=== PATIENT | female | born 1935 | race Caucasian/White ===

== ENCOUNTER 2021-05-29 14:31 | Outpatient (CLI) | payer MEDICARE, BC | END 2021-05-29 23:59 | disposition home or self-care (01) | LOC: CARD DIAG 14:31 | PROVIDERS: ATTEND Internal Medicine | DX: C50.912 Malignant neoplasm of unspecified site of left female breast (principal); C50.911 Malignant neoplasm of unspecified site of right female breast; I08.0 Rheumatic disorders of both mitral and aortic valves | CPT/HCPCS: 93306 ==

== ENCOUNTER 2025-06-15 12:49 | Emergency (ER) | payer MEDICARE, BC ==
[~2025-06-15] VITALS: Ht 165.1 cm; Wt 55.0 kg
--- NOTE | 2025-06-15 13:20 | Physician Documentation ---
History of Present Illness ~ Chief Complaint: Back Pain Stated Complaint: BACK PAIN Time Seen by MD: 13:12 HPI This is a 89-year-old female with a history of dementia, on anticoagulation, presents for evaluation of back pain. She had fallen a week ago. Since then she complains of left-sided back pain. Pain with ambulation. Had x-rays done as per stage which were negative. The pain continues so she came for a 2nd opinion. She denies striking her head. Denies headache. Denies any other symptoms. Denies my concerns for tobacco, alcohol or illicit substances use. Medication Reconciliation Allergies: Coded Allergies: latex (Verified Allergy, Unknown, 06/15/25) Review of Systems ROS 10 point review of systems was performed and unless noted above in HPI is negative for acute process/complaint. Physical Exam Physical Exam Vital Signs: Temperature: 98.3, Source: Oral, Heart Rate: 66, Respiratory Rate: 17, BP: 133/68, Pulse Oximetry: 97, Weight: 55.000 Physical Exam GENERAL: Awake, alert, oriented, GCS 15, no apparent distress, non-toxic appearing, answers questions, follows commands appropriately. HEENT: Atraumatic, normocephalic, pupils equal, extraocular muscles intact, sclerae anicteric, mucus membranes moist, oropharynx is clear, no stridor. NECK: supple, full active range of motion, trachea midline, no thyromegaly, no lymphadenopathy, no JVD. CARDIOVASCULAR: regular rate/rhythm, no murmurs/gallops/rubs, Pulses are 2+ in all extremities and symmetric. Capillary refill less than 2 seconds. PULMONARY: Nonlabored, good air movement ,no respiratory distress, speaking in full sentences, clear to auscultation bilaterally, no wheezing, no ronchi, no rales, no accessory muscle use. GASTROINTESTINAL: Soft, non-tender, non-distended, normal active bowel sounds, n o organomegaly, no pulsatile masses, no CVA tenderness. NEUROLOGIC: Lucid with normal mental status. Normal facial symmetry. Moves all extremities symmetrically and with purpose. No truncal ataxia. Speech is fluid without evidence of dysarthria or aphasia, no focal deficits appreciated. MUSCULOSKELETAL: There is full range of motion of all extremities. There is no joint pain or joint swelling or joint erythema. There is no muscle pain or tenderness or swelling. EXTREMITIES: warm, well-perfused, no cyanosis, no clubbing, no edema, no acute deformities. Skin: warm, dry, no rashes or lesions, no jaundice, no petechiae orpurpura. No ecchymosis. PSYCHIATRIC: Normal affect, normal insight, normal concentration. Focused exam: [] Progress Results/Orders Results/Orders Orders - JOEL MCCOLLUM DO Ct Lumbar Spine (06/15/25 14:17) Ct Pelvis (06/15/25 14:20) Ct Head (06/15/25 14:14) Ct Cervical Spine (06/15/25 14:16) Completed Orders - JOEL MCCOLLUM DO Ct Lumbar Spine (06/15/25 14:17) Ct Pelvis (06/15/25 14:20) Ct Head (06/15/25 14:14) Ct Cervical Spine (06/15/25 14:16) Vital Signs 06/15/25 06/15/25 12:54 14:13 Temp 98.3 Pulse 66 Resp 17 14 B/P (MAP) 133/68 Pulse Ox 97 Medical Decision Making Findings A Facility Status: ED Holds, RME process The plan was discussed with the patient, who demonstrates clear understanding of the plan and is in agreement with the plan unless otherwise noted in the chart. All questions have been answered, all concerns were addressed unless otherwise documented. I was available throughout their ED stay for frequent reassessment and questions. Differential Diagnoses (considered and possible or likely): [Ground level fall, acute traumatic pain, lumbar spine fracture or subluxation, pelvic fracture, less likely closed head injury, concussion, subdural, subarachnoid] ??Differential Diagnoses (considered and unlikely, not requiring evaluation currently): [No evidence of lateralizing signs to suspect a stroke. Clinically not consistent with a cauda equina or conus medullaris] MDM Data Please see HPI for the following: Independent Historians and external Records Review. Historian: [Patient] Independent Historians: ?[Record review] Medication Management: [Reviewed medication list] Social History and determinants: [Reviewed] Please see the body of the note for the following: Any independent interpretations of ECG, imaging studies. All vitals signs/haemodynamics, ordered tests were independently reviewed and interpreted by myself. Nursing triage complaint and vitals reviewed, additional nursing notes were reviewed as available and I agree unless otherwise noted or documented in contradiction in the chart Vital Signs: Independently reviewed Labs: Independently interpreted Imaging: Independently interpreted Old Medical Records: Independently reviewed, see HPI for relevant summary and information Pulse Oximetry: [97%] interpreted as [normal on room air] by me Additionally notably showing: [Convexity only went day cyst hemodynamically stable. No evidence of tachycardic, hypotension, respiratory distress. CT head was obtained showing no acute intracranial abnormality. 50 cervical spine was obtained showing no fracture, severe DJD. CT lumbar spine was obtained showing advanced DJD. CT of the pelvis with a obtained showed no acute fracture.] Tests considered but not ordered include: [Hematologic workup has been considered but does not appear to be necessary given mechanical nature of the injury.] Social Determinants of Health Impact: Patient was evaluated in [facility] [place] to healthcare due to below par ratio of patient to medical providers. [] Comorbid Conditions Impacting Present Evaluation and Care/Treatment: [Dementia] Management Discussions with other Healthcare Providers: [None] Treatment and Disposition Medication Management (Given or considered): []. See EMR for details Consideration for Hospitalization/Escalation/Deescalation of Care: Admission for observation has been considered, [however the patient is able to tolerate p.o., their symptoms are controlled, they are able to rely on oral medications, and their chief complaint/diagnosis can be managed on outpatient basis.] ?ED Course:?[No clinical deterioration] ?Shared decision making:?[Patient is hemodynamically stable for discharge home with follow with their primary care provider. [ ] Specific and cautious return precautions provided and discussed with full understanding. Any incidental findings were also discussed and follow up recommendations given. [] All questions answered. Patient/family were able to verbalize back return precautions. Patient/family agree to plan. Copies of imaging and laboratory studies were provided.] Code status:?FULL Please see the full Electronic Medical Record for full details of nursing documentation, medications list, other records of complete past medical history and conditions, vital signs, laboratory studies, and any radiologic study interpretations by radiologists. Portions of this note were completed using [employer] dictation software and as a result there may exist minor errors in spelling. I have reviewed elements of past family and social history and agree as included in note. Departure Disposition: HOME / SELF CARE / HOMELESS Impression: Primary Impression: Ground-level fall Additional Impression: Acute back pain Condition: Stable Discharge Instructions: Acute Back Pain, Adult Referrals: NO PRIMARY CARE PROVIDER (PCP) Education Educated: Patient Educated regarding: diagnosis, treatment, prognosis, need for follow up Signature Scribe Signature: No scribe Attestation: This note accurately reflects clinical decisions, work performed by myself, Joel Mccollum, JOEL GLASER DO Jun 15, 2025 13:20
--- NOTE | 2025-06-15 14:30 | RADIOLOGY REPORT ---
COMPUTERIZED TOMOGRAPHY OF THE HEAD WITHOUT CONTRAST REASON FOR STUDY: Fall, pain COMPARISON: None TECHNIQUE: Helical tomographic scans were obtained through the brain. 2-D coronal and sagittal reformatted images are provided. Radiation optimization: All CT scans at this facility use at least one of these dose optimization techniques: Automated exposure control mA and/or kV adjustment per patient size (includes targeted exams where dose is matched to clinical indication) or iterative reconstruction. RADIATION DOSE: CTDI: 62 mGy DLP: 1104 mGy-cm FINDINGS: No suspicious intracranial hyperdensity to suggest acute blood. There is no mass effect nor midline shift. There is moderate generalized volume loss with compensatory enlargement of the CSF spaces. There is no hydrocephalus. The suprasellar cistern is intact. There are scattered periventricular and deep white matter hypodensities that are most consistent with chronic microangiopathic changes. The calvarium is intact. There is moderate scattered mucosal thickening in the visualized paranasal sinuses. The visualized mastoid air cells are grossly clear. IMPRESSION: No acute intracranial abnormality. Moderate generalized volume loss with chronic small vessel ischemic change. Moderate mucosal disease in the visualized paranasal sinuses. Correlate clinically for acute sinusitis.
--- NOTE | 2025-06-15 14:31 | RADIOLOGY REPORT ---
Indication: Fall, pain Technique: CT axial images of the cervical spine are obtained without contrast. Coronal and sagittal reformats were obtained. Radiation Dose Information: CTDI volume is 22 mGy. Dose-length product is 528.5 mGy*cm Comparison: None FINDINGS: The cervical vertebral body heights are maintained. Straightening of normal cervical spine curvature. 2 mm anterolisthesis C2 upon C3. There is severe multilevel disc space narrowing. No prevertebral edema. Facet articulations demonstrate moderate facet hypertrophic changes . The atlantooccipital, marielena antoaxial articulations are intact. IMPRESSION: Severe cervical degenerative disc disease.
--- NOTE | 2025-06-15 14:43 | RADIOLOGY REPORT ---
CT CT LUMBAR SPINE Indication: Fall, pain EXAM DATE: 06/15/2025 02:12 PM COMPARISON: None TECHNIQUE: CT of the lumbar spine without intravenous contrast. RADIATION DOSE: CTDIvol: 30 mGy, DLP: 970 mGy*cm FINDINGS: The lumbar vertebral body heights are maintained. Moderate to advanced multilevel disc space narrowing in the lumbar spine. Vacuum disc phenomena at L1-2. Mild lumbar dextrocurvature.. Moderate to advanced lumbar facet hypertrophic changes. 3 mm disc protrusion at L1-2. Znve-vi-ooumkbwo spinal canal stenosis at this level. 4 mm disc protrusion at L2-3. Naaj-ua-aakcpbyo spinal canal stenosis at this level. 4 mm disc protrusion L3-4. Moderate spinal canal stenosis at this level. 5 mm disc protrusion at L4-5. Moderate to severe spinal canal stenosis at this level. 4 mm disc protrusion at L5-S1. Moderate spinal canal stenosis at level. Moderate to severe lumbar multilevel neural foraminal stenosis Atherosclerotic calcification disease. Cholelithiasis. 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 Colonic diverticula. IMPRESSION: Moderate to advanced lumbar degenerative disc disease. Multilevel spinal canal, neural foraminal stenosis. MRI lumbar spine can be obtained to further characterize as clinically warranted.
--- NOTE | 2025-06-15 15:00 | RADIOLOGY REPORT ---
History: Fall, pain Comparison Study: None Technique: Multidetector spiral CT of the pelvis was performed from iliac crests to pubic symphysis. Axial, coronal and sagittal multiplanar reformats were performed by the technologist on a separate workstation. Radiation Dose : CT Dose: CTDI volume is 18.5 mGy. Dose-length product is 591.2 mGy*cm Findings: Visualized bowel: Small bowel and colon are normal in caliber and distribution. The appendix is not visualized; however, no secondary findings of acute appendicitis identified. Ascites: Absent Lymphadenopathy: No pelvic or mesenteric lymphadenopathy. Pelvis Wall and Mesentery: Unremarkable. Vasculature: The visualized abdominal aorta is normal in size and caliber. There is calcified atherosclerotic plaque involving the aorta and its branches. Abdominal and pelvic vessels demonstrate normal enhancement. Pelvic Organs: The uterus is surgically absent. Musculoskeletal: No aggressive focal bony lesions, acute fractures or dislocation. Osteopenia. Bladder: Distended urinary bladder. IMPRESSION: No acute pelvic finding.
[2025-06-15 15:31] VITALS: TEMP 98.2; O2SAT 94
[2025-06-15 16:45] VITALS: BP 160/69; PULSE 68; RESP 14
== END 2025-06-15 17:08 | disposition home or self-care (01) ==
LOC: ER 12:50
DX: M54.9 Dorsalgia, unspecified (principal); F03.90 Unspecified dementia, unspecified severity, without behavioral disturbance, psychotic disturbance, mood disturbance, and anxiety; Z91.040 Latex allergy status; W18.30XA Fall on same level, unspecified, initial encounter; Y93.89 Activity, other specified; Y92.89 Other specified places as the place of occurrence of the external cause; Y99.8 Other external cause status
CPT/HCPCS: 70450; 72125; 72131; 72192; 99285